=== PATIENT | female | born 1980 | race African-American/Black ===

== ENCOUNTER 2020-06-15 11:52 | Emergency (ER) | payer MEDICAID, OTHER ==
[~2020-06-15] VITALS: Ht 172.7 cm; Wt 113.0 kg
[2020-06-15] MEDS ORDERED: LORAZEPAM 2MG/ML CPJ IM ONE (12:45)
[2020-06-15] MEDS ORDERED: HALOPERIDOL LACTATE 5MG/ML VIAL IM ONE (12:45)
[2020-06-15 15:24] LABS: BASOPHILS % 0.6 % (0.0-2.0); HEMATOCRIT. 34.6 % (36.0-48.0); HEMOGLOBIN. 11.9 g/dL (12.0-16.0); MEAN CORPUSCULAR HEMOGLOBIN 29.6 pg (28.0-32.0); MEAN CORPUSCULAR VOLUME 86.4 fL (81.0-99.0); MEAN PLATELET VOLUME 8.7 fl (7.4-10.4); MONOCYTES % 4.6 % (2.0-8.0); NEUTROPHILS % 79.8 % (40.0-76.0); PLATELET 188 x1000/uL (130-400); RED CELL DISTRIBUTION WIDTH 14.4 % (11.6-14.6)
[2020-06-15 15:29] LABS: CHLORIDE 107 mEq/L (98-107)
[2020-06-15 15:33] LABS: ETHANOL BLOOD < 10 mg/dL
[2020-06-15 15:42] LABS: HCG SCREEN POSITIVE
[2020-06-16 15:21] LABS: CLARITY URINE CLOUDY (CLEAR); COLOR URINE YELLOW (YELLOW); KETONES URINE 4+ (NEGATIVE); LEUKOCYTE ESTERASE URINE 3+ (NEGATIVE); NITRITE URINE NEGATIVE (NEGATIVE); OCCULT BLOOD URINE NEGATIVE (NEGATIVE); PH URINE 6.5 (4.5-8.0); PROTEIN URINE TRACE (NEGATIVE); SPECIFIC GRAVITY URINE 1.023 (1.005-1.030)
[2020-06-16 15:52] LABS: *BARBITURATES SCREEN URINE NEGATIVE (NEGATIVE)
[2020-06-16 15:53] LABS: *AMPHETAMINES SCREEN URINE NEGATIVE (NEGATIVE); *BENZODIAZEPINES SCREEN URINE NEGATIVE (NEGATIVE); CANNABINOID URINE SCREEN NEGATIVE (NEGATIVE); METHADONE URINE SCREEN NEGATIVE (NEGATIVE); OPIATES URINE SCREEN NEGATIVE (NEGATIVE); PHENCYCLIDINE URINE SCREEN NEGATIVE (NEGATIVE)
[2020-06-16 16:01] LABS: *COCAINE SCREEN URINE PRESUMTIVE POSITIVE (NEGATIVE)
[2020-06-17] MEDS ORDERED: HALOPERIDOL LACTATE 5MG/ML VIAL IM ONE (18:15)
[2020-06-18] MEDS ORDERED: HALOPERIDOL LACTATE 5MG/ML VIAL IM ONE (23:30)
[2020-06-19] MEDS ORDERED: CEPHALEXIN 250MG CAPSULE PO ONE (02:30)
[2020-06-19] MEDS: CEPHALEXIN 250MG CAPSULE PO SCH ×3 (03:11→17:00)
[2020-06-19] MEDS ORDERED: OLANZAPINE 10 MG/VIAL IM ONE ×2 (03:15→22:00)
[2020-06-20] MEDS: CEPHALEXIN 250MG CAPSULE PO SCH ×2 (12:01→18:28)
[2020-06-20] MEDS ORDERED: OLANZAPINE 10 MG/VIAL IM ONE ×2 (18:30→19:30)
[2020-06-20] MEDS ORDERED: DIPHENHYDRAMINE 50MG/ML VIAL IM ONE (19:30)
[2020-06-21] MEDS: CEPHALEXIN 250MG CAPSULE PO SCH ×2 (09:00→17:00)
[2020-06-21] MEDS ORDERED: OLANZAPINE 10 MG/VIAL IM ONE (19:45)
[2020-06-21] MEDS ORDERED: DIPHENHYDRAMINE 50MG/ML VIAL IM PRN (21:30)
[2020-06-22] MEDS: CEPHALEXIN 250MG CAPSULE PO SCH ×2 (09:00→17:00)
[2020-06-22] MEDS ORDERED: OLANZAPINE 10 MG/VIAL IM ONE (17:45)
[2020-06-22] MEDS ORDERED: DIPHENHYDRAMINE 50MG/ML VIAL IM ONE (17:45)
[2020-06-23] VITALS: BP 140/80
[2020-06-23] MEDS: CEPHALEXIN 250MG CAPSULE PO SCH (09:00)
[2020-06-23] MEDS ORDERED: LORAZEPAM 2MG/ML CPJ IM PRN (14:30)
== END 2020-06-23 15:44 | disposition home or self-care (01) ==
LOC: ER 12:03 → EDBD 12:03 → ER 06-23 15:44
DX: O99.341 Other mental disorders complicating pregnancy, first trimester (principal); F53.1 Puerperal psychosis; O16.1 Unspecified maternal hypertension, first trimester; Z3A.00 Weeks of gestation of pregnancy not specified; I49.9 Cardiac arrhythmia, unspecified; R45.1 Restlessness and agitation
CPT/HCPCS: 36415; 76815; 80053; 80320; 80329; 84702; 84703; 85025; 93005; 96372; 99285; J1200; J1630; J2060; J3490; Z7610; G0480